=== PATIENT | male | born 2000 | race Caucasian/White ===

== ENCOUNTER 2020-06-17 21:39 | Emergency (ER) | payer BC ==
[~2020-06-17] VITALS: Ht 175.3 cm; Wt 52.3 kg
[2020-06-17] MEDS ORDERED: CLEOCIN HCL300 MG PO (22:38)
[2020-06-17 22:57] VITALS: BP 128/64; PULSE 74; TEMP 98.8
== END 2020-06-17 22:56 | disposition home or self-care (01) ==
LOC: COL.ER 21:39
DX: T17.920A Food in respiratory tract, part unspecified causing asphyxiation, initial encounter (principal); F17.200 Nicotine dependence, unspecified, uncomplicated